=== PATIENT | female | born 1975 | race Caucasian/White ===

== ENCOUNTER → 2020-11-22 | Outpatient (CLI) | payer OTHER ==
--- NOTE | 2020-11-22 21:16 | CONS ---
CONSULTATION 44-year-old lady has been evaluated in the sleep center for possible obstructive sleep apnea-hypopnea syndrome. HISTORY OF PRESENT ILLNESS/SLEEP WAKE EVALUATION: SLEEP SCHEDULE: Patient's usual sleep schedule from 11 p.m. to 6 a.m. on weekdays and from 11 p.m. to 7 a.m. on weekends. FALLING ASLEEP: No problems with falling asleep. No TV in bedroom. DURING SLEEP: Usually sleeps on the side position. According to her , she snores and has witnessed episodes of stopped breathing during sleep. Patient wakes up from sleep with a dry mouth 2 times and also has 1 episode of nocturia. DURING THE DAY/SLEEP WAKE EVALUATION: In the morning, patient wakes up tired. Usually does not take naps. [place] Sleepiness Scale is 5. PAST MEDICAL HISTORY: Positive for headaches, rosacea. PAST SURGICAL HISTORY: . MEDICATIONS: Metronidazole cream, Chlorthalidone 25 mg once a day for tendency of swelling. SOCIAL HISTORY: Positive for smoking on and off for 20 years, presently half pack a day. Alcohol consumption occasional. FAMILY HISTORY: Positive for melanoma by her father and breast CA by her aunt. REVIEW OF SYSTEMS: Loud snoring, witnessed episodes of stopped breathing during sleep. PHYSICAL EXAMINATION: GENERAL: lady without distress BP 154/97, HR 97, RR 12, height 5 feet 8 inches, weight 173.0, temperature 98.2, oxygen saturation at room air 97%. Oropharynx extremely low position of soft palate. Mallampati IV. NECK: 13.5 inches in circumference. Neck: Supple, no JVD. Thyroid is not palpable. LUNGS: Clear to percussion and to auscultation. Good air exchange. No wheezing or rhonchi. HEART: S1, S2 regular. No murmurs, gallops, or rubs. ABDOMEN: Soft and nontender. Bowel sounds are present. No organomegaly appreciated. EXTREMITIES: No clubbing or cyanosis. A&P MECHANIC: Awake, alert, and oriented X3. Cranial nerves 2 to 7 intact. There is no fasciculation or atrophy. noted. No focal deficits observed. IMPRESSION: 1. Snoring, witnessed episodes of stopped breathing during the sleep. Low position of soft palate. Obstructive sleep apnea-hypopnea syndrome. 2. Headaches. 3. Rosacea. 4. Status post . PLAN: 1. Polysomnography for evaluation of patient's breathing during sleep. 2. CPAP/BiPAP titration if sleep study confirms obstructive sleep apnea-hypopnea syndrome. 3. Preferable position during sleep on the side. 4. No driving if patient feels any sleepiness. 5. I will see patient for follow up visit to explain results of testing and following plan. Thank you very much for referring this patient for consultation. Sincerely, Bo Adorno MD, PhD, FAASM Diplomat of [employer] [place] [employer] Staff Command And Control Officer of [facility] [place] MMODL / IJN: [id number] /
== END ==
LOC: SLEEP 14:58
PROVIDERS: ATTEND Internal Medicine
DX: G47.33 Obstructive sleep apnea (adult) (pediatric) (principal); L71.9 Rosacea, unspecified; Z98.890 Other specified postprocedural states
CPT/HCPCS: 99211

== ENCOUNTER → 2021-09-23 | Outpatient (CLI) | payer BC ==
[2021-09-23 15:26] LABS: ALT 31 U/L (4-34); AST 46 U/L (14-36); African American GFR (CKD) >90 (>60 ml/min/1.73 sqM); Albumin 3.6 g/dL (3.5-5.0); Albumin/Globulin Ratio 1.3; Alkaline Phosphatase 102 U/L (38-126); Anion Gap 9 mmol/L; Blood Urea Nitrogen 17 mg/dL (7-17); Carbon Dioxide 34 mmol/L (22-30); Chloride 85 mmol/L (98-107); Globulin 2.8 g/dL; Glucose 134 mg/dL (74-99); Non-African American GFR(CKD) 80 (>60 ml/min/1.73 sqM); Sodium 128 mmol/L (137-145); Total Bilirubin 0.8 mg/dL (0.2-1.3); Total Protein 6.4 g/dL (6.3-8.2)
[2021-09-23 15:28] LABS: Potassium 2.1 mmol/L (3.5-5.1)
[2021-09-23 15:30] LABS: Basophils % (A) 0 %; Eosinophils % (A) 0 %; HGB 14.3 gm/dL (11.4-16.0); Lymphocytes # (A) 1.3 k/uL (1.0-4.8); Lymphocytes % (A) 9 %; MCH 32.2 pg (25.0-35.0); MCHC 34.8 g/dL (31.0-37.0); MCV 92.5 fL (80.0-100.0); Mean Platelet Volume 8.9; Monocytes # (A) 0.8 k/uL (0-1.0); Monocytes % (A) 5 %; Neutrophils # (A) 12.8 k/uL (1.3-7.7); Neutrophils % (A) 83 %; Platelet Count 162 k/uL (150-450); RBC 4.43 m/uL (3.80-5.40); RDW 13.2 % (11.5-15.5); WBC 15.5 k/uL (3.8-10.6)
[2021-09-24 00:21] LABS: Hepatitis B Core IgM Nonreactive (Nonreactive); Hepatitis B Surface Antigen Nonreactive (Nonreactive); Hepatitis C IgG Antibody Nonreactive (Nonreactive)
== END | disposition home or self-care (01) ==
LOC: LABWHC1 14:10
PROVIDERS: ATTEND Nurse Practitioner Family
DX: R50.9 Fever, unspecified (principal)
CPT/HCPCS: 36415; 80053; 80074; 83605; 85025; 87502